=== PATIENT | female | born 1995 | race American Indian/Alaskan Native ===

== ENCOUNTER 2021-02-17 22:16 | Outpatient (CLI) | payer MEDICAID, OTHER ==
[2021-02-17] MEDS ORDERED: LACTATED RINGERS 500 ML IV ONE (22:31)
[2021-02-17 22:40] VITALS: BP 99/62
[2021-02-17] MEDS ORDERED: ACETAMINOPHEN 500 MG TAB PO ONE (22:49)
== END 2021-02-17 23:03 | disposition home or self-care (01) ==
LOC: TRG 22:16 → APU 22:17 → TRG 23:03
PROVIDERS: ATTEND Obstetrics & Gynecology
DX: O36.8130 Decreased fetal movements, third trimester, not applicable or unspecified (principal); Z3A.29 29 weeks gestation of pregnancy
CPT/HCPCS: 59025

== ENCOUNTER 2021-03-13 22:37 | Outpatient (CLI) | payer MEDICAID ==
[2021-03-13 23:13] VITALS: BP 111/64
[2021-03-13] MEDS ORDERED: LACTATED RINGERS 1,000 ML IV ONE (23:23)
[2021-03-13 23:55] LABS: Bacteria,Urine 1+ /HPF (Negative); Bilirubin,Urine NEG (Negative); Blood,Urine NEG (Negative); Color,Urine Yellow (Yellow); Mucus,Urine 2+ /HPF; Protein,Urine <15 mg/dL mg/dL (Negative); Urobilinogen,Urine < 2.0 mg/dL (<2.0)
[2021-03-14] MEDS ORDERED: LIDOCAINE-MPF (1%) 10 MG/1 ML VIAL 5 ML INFILTRATI ONE
== END 2021-03-14 00:30 | disposition home or self-care (01) ==
LOC: TRG 22:37 → APU 22:38 → TRG 03-14 00:30
PROVIDERS: ATTEND Obstetrics & Gynecology
DX: O26.893 Other specified pregnancy related conditions, third trimester (principal); R10.2 Pelvic and perineal pain; Z3A.32 32 weeks gestation of pregnancy
CPT/HCPCS: 59025; 81001; 96372; J0696

== ENCOUNTER 2021-03-17 19:24 | Outpatient (CLI) | payer MEDICAID ==
[2021-03-17 20:06] VITALS: BP 113/65
[2021-03-17] MEDS ORDERED: LACTATED RINGERS 1,000 ML IV ONE (20:13)
== END 2021-03-17 20:45 | disposition home or self-care (01) ==
LOC: TRG 19:24 → APU 19:28 → TRG 20:45
PROVIDERS: ATTEND Obstetrics & Gynecology
DX: Z34.93 Encounter for supervision of normal pregnancy, unspecified, third trimester (principal); Z3A.33 33 weeks gestation of pregnancy
CPT/HCPCS: 59025

== ENCOUNTER 2021-04-23 19:36 | Outpatient (CLI) | payer MEDICAID ==
[2021-04-23 20:18] VITALS: BP 106/74
== END 2021-04-23 20:44 | disposition home or self-care (01) ==
LOC: TRG 19:36 → APU 19:38 → TRG 20:44
PROVIDERS: ATTEND Obstetrics & Gynecology
DX: Z34.93 Encounter for supervision of normal pregnancy, unspecified, third trimester (principal); Z3A.38 38 weeks gestation of pregnancy
CPT/HCPCS: 59025